=== PATIENT | male | born 1940 | race Caucasian/White ===

== ENCOUNTER → 2017-01-17 | Outpatient (POV) | LOC: OUTPT 00:01 | PROVIDERS: ATTEND Otolaryngology | DX: H83.3X9 Noise effects on inner ear, unspecified ear (principal) | CPT/HCPCS: 92557; 92567 ==

== ENCOUNTER 2017-12-26 10:51 | Outpatient (POV) | END 2017-12-26 17:00 | LOC: OUTPT 10:51 | PROVIDERS: ATTEND Otolaryngology | DX: H91.90 Unspecified hearing loss, unspecified ear (principal) ==

== ENCOUNTER 2018-12-05 13:34 | Outpatient (POV) | END 2018-12-05 17:00 | LOC: OUTPT 13:34 | PROVIDERS: ATTEND Otolaryngology | DX: H91.90 Unspecified hearing loss, unspecified ear (principal) ==